=== PATIENT | female | born 1935 | race Two or more races ===

== ENCOUNTER 2025-02-23 11:29 | Inpatient (IN) | payer OTHER ==
[~2025-02-23] VITALS: Ht 160 cm; Wt 72.6 kg
[2025-02-23] MEDS ORDERED: COZAAR100 MG PO (11:46)
[2025-02-23] MEDS ORDERED: METFORMIN HCL500 MG (11:46)
[2025-02-23] MEDS ORDERED: GLIMEPIRIDE4 MG (11:46)
[2025-02-23] MEDS ORDERED: SIMVASTATIN5 MG PO (11:47)
[2025-02-23] MEDS ORDERED: ALPHAGAN P5 M2 OP (11:48)
[2025-02-23] MEDS ORDERED: CHILDREN'S ASPI81 MG PO (11:48)
[2025-02-23] MEDS ORDERED: TIROSINT13 MCG (11:48)
[2025-02-23] MEDS ORDERED: XELPROS2.5 ML OP (11:49)
[2025-02-23 12:53] LABS: BASO % 0.1 % (0.1-1.2); EOS # 0.00 (0.04-0.54); EOS % 0.0 % (0.7-7.0); LYMPH # 0.56 (1.18-3.74); LYMPH % 3.2 % (19.3-53.1); MEAN PLATELET VOLUME 12.10 fl (9.4-12.4); MONO # 0.56 (0.24-0.82); MONO % 3.2 % (4.7-12.5); NEUT # 16.06 (1.56-6.13); NEUT % 92.7 % (34.0-71.1); RED CELL DISTRIBUTION WIDTH 12.5 % (11.6-14.4)
[2025-02-23 13:49] LABS: BUN CREA RATIO 26.0 (7.0-25.0); CREATININE SERUM 1.19 mg/dL (0.55-1.02); GFR 42.71
[2025-02-23 13:52] LABS: GLUCOSE FASTING 307.0 mg/dL (65-100); OSMOLALITY SERUM 255.0 MOSM/KG (275-295)
[2025-02-23] MEDS ORDERED: 0.9 % SODIUM CHLORIDE 1,000 ML IV SCH ×2 (16:15→21:00)
[2025-02-23] MEDS ORDERED: CEFTRIAXONE SODIUM 1,000 MG VIAL IV ONE (18:00)
[2025-02-23] MEDS ORDERED: IPRATROPIUM BROMIDE 0.5 MG/2.5 ML AMPUL.NEB IH SCH (20:58)
[2025-02-23] MEDS ORDERED: CEFTRIAXONE SODIUM 2,000 MG in 0.9 % SODIUM CHLORIDE 100 ML IV SCH (21:01)
[2025-02-23] MEDS ORDERED: AZITHROMYCIN 500 MG in DEXTROSE 5 % IN WATER 250 ML IV SCH (21:01)
[2025-02-23] MEDS ORDERED: SODIUM POLYSTYRENE SULFONATE 30G/8 TSP PO SCH (21:03)
[2025-02-23] MEDS ORDERED: METHYLPREDNISOLONE SOD SUCC 125 MG VIAL IV ONE (21:15)
[2025-02-23] MEDS ORDERED: INSULIN LISPRO 1,000 UNIT/10 ML UNITS SUBCUTANEO PRN (21:15)
[2025-02-23] MEDS ORDERED: INSULIN REGULAR, HUMAN 1,000 UNIT/10 ML UNITS IV ONE (21:15)
[2025-02-23] MEDS ORDERED: ACETAMINOPHEN 500 MG GEL..CAP PO PRN (21:15)
[2025-02-23] MEDS ORDERED: DEXTROSE 50 % IN WATER 0.5 G/ML DISP.SYRIN IV PRN (21:15)
[2025-02-23 22:25] LABS: ABG PH 7.367 (7.35-7.45); ABG PO2 81.2 mmHg (80-100); BICARBONATE 14.0 mmol/l (23-25)
[2025-02-23 22:48] LABS: o2 21 %
[2025-02-24 01:00] LABS: INR 1.06
[2025-02-24] MEDS ORDERED: GUAIFEN/DEXTROMETHORPHAN/PE 10 ML BLIST.PACK PO SCH (01:00)
[2025-02-24 01:13] LABS: COVID-19 AG POSITIVE (NEGATIVE)
[2025-02-24 01:47] VITALS: BP 122/66; O2SAT 99
[2025-02-24 04:00] LABS: URINE APPEARANCE Clear; URINE BILIRRUBIN Negative (NEGATIVE); URINE BLOOD Moderate; URINE COLOR Yellow; URINE LEUKOCYTE Negative; URINE NITRATE Negative; URINE PROTEIN 30 (NEGATIVE); URINE UROBILINOGEN 0.2 E.U./dl
[2025-02-24 04:01] LABS: URINE BACTERIA 62.3 uL (0.0-1933); URINE CAST 1.61 uL (0.0-1.40); URINE EPITHELIAL CELLS 6.3 uL (0.0-38.8); URINE RBC 28.0 uL (0.0-20.8); URINE WBC 26.9 uL (0.0-23.2)
[2025-02-24 04:30] LABS: URINE GLUCOSE >=1000 MG/DL (NEGATIVE); URINE KETONE 80 (NEGATIVE)
[2025-02-24 08:00] VITALS: BP 120/71; O2SAT 99
[2025-02-24] MEDS ORDERED: ENOXAPARIN SODIUM 40 MG/0.4 ML SYRINGE SUBCUTANEO SCH (09:00)
[2025-02-24] MEDS ORDERED: LOSARTAN POTASSIUM 100 MG TABLET PO SCH (09:00)
[2025-02-24] MEDS ORDERED: METHYLPREDNISOLONE SOD SUCC 40 MG VIAL IV SCH (13:00)
[2025-02-24] MEDS ORDERED: IPRATROPIUM/ALBUTEROL SULFATE 3 ML AMPUL.NEB IH SCH (13:00)
[2025-02-24 16:00] VITALS: BP 118/65; O2SAT 96
[2025-02-24] MEDS ORDERED: CEFEPIME HCL 2,000 MG VIAL IV SCH (17:00)
[2025-02-24] MEDS ORDERED: SIMVASTATIN 20 MG TABLET PO SCH (17:00)
[2025-02-24] MEDS ORDERED: AZITHROMYCIN 500 MG VIAL IV SCH (21:00)
[2025-02-24] MEDS ORDERED: CEFTRIAXONE SODIUM 2,000 MG in 0.9 % SODIUM CHLORIDE 100 ML IV SCH (21:00)
[2025-02-24] MEDS ORDERED: AZITHROMYCIN 500 MG in DEXTROSE 5 % IN WATER 250 ML IV SCH (21:00)
[2025-02-24] MEDS ORDERED: HYDROCORTISONE SODIUM SUCC/PF 100 MG VIAL IV STA (23:07)
[2025-02-24] MEDS ORDERED: DEXTROSE 5 % AND 0.9 % NACL 1,000 ML IV SCH (23:15)
[2025-02-25] MEDS ORDERED: HYDROCORTISONE SODIUM SUCC/PF 100 MG VIAL IV SCH
[2025-02-25 01:02] VITALS: BP 121/64; O2SAT 96
[2025-02-25] MEDS ORDERED: LEVOTHYROXINE SODIUM 50 MCG TABLET PO SCH (06:00)
[2025-02-25] MEDS ORDERED: 0.9 % SODIUM CHLORIDE 1,000 ML IV SCH (07:15)
[2025-02-25] MEDS ORDERED: DEXAMETHASONE SODIUM PHOSPHATE 4 MG/ML VIAL IV STA (08:51)
[2025-02-25] MEDS ORDERED: REMDESIVIR 100 MG VIAL IV ONE (09:00)
[2025-02-25] MEDS ORDERED: ENOXAPARIN SODIUM 60 MG/0.6 ML SYRINGE SUBCUTANEO SCH (09:00)
[2025-02-25] MEDS ORDERED: HYDROCORTISONE SODIUM SUCC/PF 50 MG/ML ML IV SCH (12:00)
[2025-02-25 13:01] LABS: BUN CREA RATIO 20.0 (7.0-25.0); CREATININE SERUM 1.19 mg/dL (0.55-1.02); GFR 42.71; OSMOLALITY SERUM 284.0 MOSM/KG (275-295)
[2025-02-25 15:06] LABS: GLUCOSE FASTING 477.0 mg/dL (65-100)
[2025-02-25 17:00] VITALS: BP 114/75; O2SAT 96
[2025-02-26 02:01] VITALS: BP 115/79
[2025-02-26 02:27] LABS: URINE APPEARANCE Clear; URINE BILIRRUBIN Negative (NEGATIVE); URINE BLOOD Large; URINE COLOR Yellow; URINE KETONE Negative (NEGATIVE); URINE LEUKOCYTE Trace; URINE NITRATE Negative; URINE UROBILINOGEN 0.2 E.U./dl
[2025-02-26 02:30] LABS: URINE BACTERIA 119.9 uL (0.0-1933); URINE CAST 3.37 uL (0.0-1.40); URINE EPITHELIAL CELLS 14.4 uL (0.0-38.8); URINE RBC 817.0 uL (0.0-20.8); URINE WBC 81.6 uL (0.0-23.2)
[2025-02-26 02:52] LABS: URINE GLUCOSE 250 MG/DL (NEGATIVE); URINE PROTEIN 100 (NEGATIVE)
[2025-02-26 06:29] LABS: BASO % 0.2 % (0.1-1.2); EOS # 0.00 (0.04-0.54); EOS % 0.0 % (0.7-7.0); LYMPH # 2.14 (1.18-3.74); LYMPH % 8.4 % (19.3-53.1); MEAN PLATELET VOLUME 11.80 fl (9.4-12.4); MONO # 1.79 (0.24-0.82); MONO % 7.1 % (4.7-12.5); NEUT # 21.11 (1.56-6.13); NEUT % 83.2 % (34.0-71.1); RED CELL DISTRIBUTION WIDTH 12.6 % (11.6-14.4)
[2025-02-26] MEDS ORDERED: POTASSIUM BICARBONATE/CIT AC 25 MEQ TABLET.EFF PO NR (07:00)
[2025-02-26 07:02] LABS: ALT/SGPT 47.0 U/L (12-78); AST/SGOT 61.0 U/L (15-37); BILIRUBIN TOTAL 0.31 mg/dL (0.3-1.2); BUN CREA RATIO 40.0 (7.0-25.0); CREATININE SERUM 0.52 mg/dL (0.55-1.02); GFR 111.03; GLOBULINA 2.6 G/DL (2.4-3.5); GLUCOSE FASTING 193.0 mg/dL (65-100); OSMOLALITY SERUM 269.0 MOSM/KG (275-295)
[2025-02-26 07:04] LABS: PHOSPHOKINASE CREATININE 291.0 U/L (26-192); TSH 1.07 uIU/mL (0.358-3.74)
[2025-02-26] MEDS ORDERED: REMDESIVIR 100 MG VIAL IV SCH (09:00)
[2025-02-26] MEDS ORDERED: DEXAMETHASONE SODIUM PHOSPHATE 4 MG/ML VIAL IV SCH ×2 (09:00→18:45)
[2025-02-26] MEDS ORDERED: POTASSIUM CHLORIDE IN WATER 40 MEQ/100 ML PIGGYBAG IV SCH (09:00)
[2025-02-26 09:33] VITALS: BP 123/83; O2SAT 93
[2025-02-26] MEDS ORDERED: MAGNESIUM SULFATE/D5W 1GM/100ML PIGGYBAG IV NR (09:50)
[2025-02-26 11:12] LABS: ACTH 54.4 pg/mL (7.2-63.3)
[2025-02-26] MEDS ORDERED: SPIRONOLACTONE 25 MG TABLET PO SCH (17:00)
[2025-02-26] MEDS ORDERED: INSULIN GLARGINE,HUM.REC.ANLOG 1,000 UNITS/10 ML UNITS SUBCUTANEO SCH (17:00)
[2025-02-26 18:45] VITALS: BP 115/60; O2SAT 90
[2025-02-26] MEDS ORDERED: POTASSIUM CHLORIDE IN WATER 100 ML IV SCH (18:47)
[2025-02-26] MEDS ORDERED: POTASSIUM PHOS,M-BASIC-D-BASIC 18 MM in 0.9 % SODIUM CHLORIDE 250 ML IV ONE (19:00)
[2025-02-26] MEDS ORDERED: MAGNESIUM SULFATE 50% 1,000 MG/2 ML VIAL IM ONE (19:00)
[2025-02-26 20:52] LABS: ABG PH 7.364 (7.35-7.45); BICARBONATE 17.4 mmol/l (23-25); o2 32 %
[2025-02-26 20:53] LABS: ABG PO2 64.8 mmHg (80-100)
[2025-02-27] VITALS (9 sets, daily range): BP systolic 106–125; BP diastolic 70–72; O2SAT 95–100
[2025-02-27 05:57] LABS: BASO % 0.1 % (0.1-1.2); EOS # 0.00 (0.04-0.54); EOS % 0.0 % (0.7-7.0); LYMPH # 1.19 (1.18-3.74); LYMPH % 5.3 % (19.3-53.1); MEAN PLATELET VOLUME 12.00 fl (9.4-12.4); MONO # 0.83 (0.24-0.82); MONO % 3.7 % (4.7-12.5); NEUT # 20.42 (1.56-6.13); NEUT % 90.3 % (34.0-71.1); RED CELL DISTRIBUTION WIDTH 12.9 % (11.6-14.4)
[2025-02-27 06:57] LABS: ALT/SGPT 178.0 U/L (12-78); AST/SGOT 197.0 U/L (15-37); BILIRUBIN TOTAL 0.38 mg/dL (0.3-1.2); BUN CREA RATIO 46.0 (7.0-25.0); CREATININE SERUM 0.68 mg/dL (0.55-1.02); GFR 81.47; GLOBULINA 2.7 G/DL (2.4-3.5); OSMOLALITY SERUM 273.0 MOSM/KG (275-295)
[2025-02-27 06:59] LABS: GLUCOSE FASTING 201.0 mg/dL (65-100)
[2025-02-27 07:06] LABS: TSH 1.1 uIU/mL (0.358-3.74)
[2025-02-27] MEDS ORDERED: VITAMIN B COMPLEX/LYSINE 15 ML BLIST.PACK PO SCH (17:00)
[2025-02-27] MEDS ORDERED: LINEZOLID 600 MG TABLET PO SCH (21:00)
[2025-02-27] MEDS ORDERED: MEROPENEM 500 MG/VIAL VIAL IV SCH (21:00)
[2025-02-28 02:57] VITALS: BP 117/77; BP 182/65; O2SAT 96
[2025-02-28 05:27] VITALS: O2SAT 99
[2025-02-28 08:00] VITALS: O2SAT 91
[2025-02-28] MEDS ORDERED: INSULIN LISPRO 1,000 UNIT/10 ML UNITS SUBCUTANEO SCH ×2 (08:00→12:00)
[2025-02-28] MEDS ORDERED: INSULIN GLARGINE,HUM.REC.ANLOG 1,000 UNITS/10 ML UNITS SUBCUTANEO SCH (09:00)
[2025-02-28 10:48] VITALS: BP 134/83; O2SAT 99
[2025-02-28 12:34] LABS: ALT/SGPT 135.0 U/L (12-78); AST/SGOT 59.0 U/L (15-37); BILIRUBIN TOTAL 0.36 mg/dL (0.3-1.2); BUN CREA RATIO 54.0 (7.0-25.0); CREATININE SERUM 0.67 mg/dL (0.55-1.02); GFR 82.87; GLOBULINA 2.9 G/DL (2.4-3.5); OSMOLALITY SERUM 276.0 MOSM/KG (275-295)
[2025-02-28 12:36] LABS: GLUCOSE FASTING 219.0 mg/dL (65-100)
[2025-02-28 17:15] VITALS: BP 107/59
[2025-03-01 02:26] VITALS: BP 133/84; O2SAT 96
[2025-03-01 05:30] VITALS: O2SAT 100
[2025-03-01 07:47] LABS: BASO % 0.2 % (0.1-1.2); EOS # 0.00 (0.04-0.54); EOS % 0.0 % (0.7-7.0); LYMPH # 1.43 (1.18-3.74); LYMPH % 6.2 % (19.3-53.1); MEAN PLATELET VOLUME 11.00 fl (9.4-12.4); MONO # 1.62 (0.24-0.82); MONO % 7.0 % (4.7-12.5); NEUT # 19.62 (1.56-6.13); NEUT % 85.4 % (34.0-71.1); RED CELL DISTRIBUTION WIDTH 13.2 % (11.6-14.4)
[2025-03-01 08:00] VITALS: O2SAT 80
[2025-03-01 08:50] LABS: ALT/SGPT 138.0 U/L (12-78); AST/SGOT 50.0 U/L (15-37); BILIRUBIN TOTAL 0.45 mg/dL (0.3-1.2); BUN CREA RATIO 63.0 (7.0-25.0); CREATININE SERUM 0.63 mg/dL (0.55-1.02); GFR 88.98; GLOBULINA 2.4 G/DL (2.4-3.5); GLUCOSE FASTING 140.0 mg/dL (65-100); LDH 685.0 U/L (84-246); OSMOLALITY SERUM 278.0 MOSM/KG (275-295)
[2025-03-01 10:01] VITALS: BP 148/72; O2SAT 98
[2025-03-01 11:12] LABS: ABG PH 7.344 (7.35-7.45); ABG PO2 116.5 mmHg (80-100); BICARBONATE 22.4 mmol/l (23-25)
[2025-03-01 12:05] LABS: o2 100 %
[2025-03-01 13:00] VITALS: O2SAT 89
[2025-03-01 17:41] VITALS: BP 123/66; O2SAT 100
[2025-03-02] VITALS (8 sets, daily range): BP systolic 92–114; BP diastolic 58–75; O2SAT 99–100
[2025-03-02] MEDS ORDERED: FAMOTIDINE/PF 20 MG/2 ML VIAL IV SCH (09:00)
[2025-03-02] MEDS ORDERED: SUCRALFATE 1 G TABLET PO SCH ×2 (09:00→21:00)
[2025-03-02 20:50] LABS: BASO % 0.1 % (0.1-1.2); EOS # 0.00 (0.04-0.54); EOS % 0.0 % (0.7-7.0); LYMPH # 0.52 (1.18-3.74); LYMPH % 3.4 % (19.3-53.1); MEAN PLATELET VOLUME 10.20 fl (9.4-12.4); MONO # 0.53 (0.24-0.82); MONO % 3.5 % (4.7-12.5); NEUT # 14.04 (1.56-6.13); NEUT % 92.1 % (34.0-71.1); RED CELL DISTRIBUTION WIDTH 13.7 % (11.6-14.4)
[2025-03-02 21:12] LABS: INR 1.17
[2025-03-02 21:16] LABS: ALT/SGPT 85.0 U/L (12-78); AST/SGOT 28.0 U/L (15-37); BILIRUBIN TOTAL 0.64 mg/dL (0.3-1.2); BUN CREA RATIO 54.0 (7.0-25.0); CREATININE SERUM 0.68 mg/dL (0.55-1.02); GFR 81.47; GLOBULINA 2.5 G/DL (2.4-3.5); OSMOLALITY SERUM 284.0 MOSM/KG (275-295)
[2025-03-02 21:17] LABS: GLUCOSE FASTING 228.0 mg/dL (65-100)
[2025-03-03] VITALS (9 sets, daily range): BP systolic 90–137; BP diastolic 62–83; O2SAT 90–100
[2025-03-03] MEDS ORDERED: METOPROLOL SUCCINATE 25 MG TAB.SR.24H PO NR (10:15)
[2025-03-03] MEDS ORDERED: MEROPENEM 500 MG/VIAL VIAL IV SCH (12:00)
[2025-03-04 00:11] VITALS: O2SAT 94
[2025-03-04 01:01] VITALS: BP 106/62; O2SAT 100
[2025-03-04 05:52] VITALS: O2SAT 99
[2025-03-04 06:24] VITALS: BP 130/50; O2SAT 100
[2025-03-04 08:15] VITALS: BP 105/71; O2SAT 97
[2025-03-04] MEDS ORDERED: METOPROLOL SUCCINATE 25 MG TAB.SR.24H PO SCH (09:00)
[2025-03-04 09:12] VITALS: O2SAT 99
[2025-03-04] MEDS ORDERED: MORPHINE SULFATE 2 MG/ML CARTRIDGE IV ONE (11:30)
[2025-03-04 11:52] LABS: ABG PH 7.369 (7.35-7.45); ABG PO2 304.7 mmHg (80-100)
[2025-03-04 11:53] LABS: BICARBONATE 24.3 mmol/l (23-25)
[2025-03-04 11:54] LABS: o2 100 %
[2025-03-04 13:08] LABS: ALDOSTERONE SERUM 2.8 ng/dL (0.0-30.0)
== END 2025-03-04 15:50 | disposition expired | DRG 193 ==
LOC: EDBD 11:29 → ER 11:29 → SURH 21:55 → MEDJ 21:55 → SURH 02-24 01:47 → MEDJ 02-25 14:00
PROVIDERS: Emergency Medicine; General Practice; Internal Medicine; Internal Medicine Critical Care Medicine; Internal Medicine Infectious Disease; Internal Medicine Nephrology; ADMIT Internal Medicine; ATTEND Internal Medicine
PROC: B020ZZZ Computerized Tomography (CT Scan) of Brain (ICD-10-PCS; principal; 2025-02-23)
PROC: BB24ZZZ Computerized Tomography (CT Scan) of Bilateral Lungs (ICD-10-PCS; 2025-02-23)
PROC: 8E0ZXY6 Isolation (ICD-10-PCS; 2025-02-24)
PROC: 3E0F7GC Introduction of Other Therapeutic Substance into Respiratory Tract, Via Natural or Artificial Opening (ICD-10-PCS; 2025-02-24)
PROC: 4A12X4Z Monitoring of Cardiac Electrical Activity, External Approach (ICD-10-PCS; 2025-02-27)
PROC: B246ZZZ Ultrasonography of Right and Left Heart (ICD-10-PCS; 2025-02-28)
PROC: XW043E5 Introduction of Remdesivir Anti-infective into Central Vein, Percutaneous Approach, New Technology Group 5 (ICD-10-PCS; 2025-03-01)
PROC: 4A033R1 Measurement of Arterial Saturation, Peripheral, Percutaneous Approach (ICD-10-PCS; 2025-03-04)
DX: J18.9 Pneumonia, unspecified organism (principal); A41.9 Sepsis, unspecified organism; I21.4 Non-ST elevation (NSTEMI) myocardial infarction; J96.90 Respiratory failure, unspecified, unspecified whether with hypoxia or hypercapnia; U07.1 COVID-19; J12.82 Pneumonia due to coronavirus disease 2019; E87.29 Other acidosis; E22.2 Syndrome of inappropriate secretion of antidiuretic hormone; I50.9 Heart failure, unspecified; E11.65 Type 2 diabetes mellitus with hyperglycemia; Z66 Do not resuscitate; J84.10 Pulmonary fibrosis, unspecified; J44.9 Chronic obstructive pulmonary disease, unspecified
CPT/HCPCS: 70450; 71250; 94640; 93228; 93306; 96365; 82805; 36600; J0248